=== PATIENT | male | born 1980 | race Caucasian/White ===

== ENCOUNTER 2017-04-21 22:04 | Emergency (ER) | payer BC ==
[~2017-04-21] VITALS: Ht 190.5 cm; Wt 90.0 kg
[~2017-04-21 22:04] MED LIST: FLEXERIL10 MG PO; NAPROSYN500 MG PO
[2017-04-21 23:53] LABS: BASOPHIL (%) 0.2 % (0-1); EOSINOPHIL (%) 0.8 % (0-5); EOSINOPHIL COUNT 0.1 K/uL (0-0.3); HEMATOCRIT 39.9 % (38.0-50.0); HEMOGLOBIN 14.2 G/DL (12.5-16.6); IMMATURE GRANULOCYTE (%) 0.4 % (0.0-0.7); LYMPHOCYTE COUNT 1.6 K/uL (1.0-2.8); MCH 30.7 PG (29.0-34.0); MCHC 35.6 G/DL (30.0-36.0); MCV 86.4 FL (86-99); MONOCYTE (%) 7.4 % (3-12); MONOCYTE COUNT 1.2 K/uL (0-0.8); NEUTROPHIL (%) 81.2 % (45-76); NEUTROPHIL COUNT 13.1 K/uL (1.8-6.4); PLATELET COUNT 321 K/uL (156-360); RBC DIS.WIDTH-CV 12.6 % (11.8-14.6); RBC DIS.WIDTH-SD 39.8 % (39-53); RED BLOOD COUNT 4.62 M/uL (4.00-5.50); WHITE BLOOD COUNT 16.1 K/uL (4.1-10.2)
[2017-04-21 23:59] LABS: PTT 31.9 SEC (25-37)
[2017-04-22 00:08] LABS: CHLORIDE 102 mEq/L (99-109); POTASSIUM 3.9 mEq/L (3.7-5.4); SODIUM 133 mEq/L (136-147)
[2017-04-22 00:10] LABS: GLUCOSE 114 mg/dL (70-99)
[2017-04-22 00:14] LABS: CREATININE 1.1 mg/dL (0.6-1.3); GFR ESTIMATE (CALCULATED) > 59 mL/min/ (58.99-99999); UREA NITROGEN (BUN) 9 mg/dL (9-23)
[2017-04-22] MEDS ORDERED: PREDNISONE10 MG PO (00:37)
[2017-04-22] MEDS ORDERED: PERCOCET 5/31 TABLET PO (00:37)
[2017-04-22 01:16] VITALS: BP 126/60
== END 2017-04-22 01:27 | disposition home or self-care (01) ==
LOC: EXP 22:04 → EME 22:04 → EXP 04-22 01:27
PROVIDERS: Physician Assistant
DX: M54.5 Low back pain (principal); M79.89 Other specified soft tissue disorders; F17.200 Nicotine dependence, unspecified, uncomplicated
CPT/HCPCS: 80048; 85025; 85610; 85730; 93971; 99281; 99285; J1885; J3010